=== PATIENT | male | born 1995 | race Caucasian/White ===

== ENCOUNTER 2021-11-03 22:06 | Emergency (ER) | payer OTHER ==
--- NOTE | 2021-11-03 22:32 | ED Physician Documentation ---
History of Present Illness - Stated complaint Stated Complaint: VOM/FEVER/HEADACHE/DELUSIONS - Chief complaint Chief Complaint: Abd Pain - History obtained from History obtained from: Patient - History of Present Illness Timing: Prior to arrival (17:00) Pain level now: 1 Improved by: improved after vomiting Worsened by: no exacerbating factors - Additonal information Additional information: c/o sudden onset n/v 5 PM tonight. With one episode of emesis, noted little bit (per patient) of blood. Mild sore throat, Tmax 100.7. Denies abdominal pain, denies diarrhea. No sick household contacts. he is COVID vaccinated without booster Review of Systems Constitutional: reports: Fever Throat: reports: Sore throat Cardiac: reports: Reviewed and negative Respiratory: reports: Reviewed and negative GI: reports: Nausea, Vomiting. denies: Abdominal Pain, Abdominal Swelling, Constipation, Diarrhea : denies: Dysuria, Frequency PD PAST MEDICAL HISTORY - Past Medical History Past Medical History: No - Past Surgical History Past Surgical History: Yes General: Appendectomy - Present Medications Home Medications: Ambulatory Orders Medication Instructions Recorded Confirmed Ondansetron Odt [Zofran] 4 mg TL Q6H PRN #14 tablet 11/04/21 11/04/21 - Allergies Allergies/Adverse Reactions: Allergies Allergy/AdvReac Type Severity Reaction Status Date / Time No Known Drug Allergies Allergy Verified 11/04/21 12:20 - Social History Does the pt smoke?: Yes Smoking Status: Current every day smoker Does the pt drink ETOH?: Yes ETOH Use: Beer Does the pt have substance abuse?: No - Immunizations Immunizations are current?: Yes - POLST Patient has POLST: No PD ED PE NORMAL - Vitals Vital signs reviewed: Yes - General General: Alert and oriented X 3, No acute distress, Well developed/nourished - HEENT HEENT: Other (pasty/tacky mucous membranes) - Neck Neck: Supple, no meningeal sign - Cardiac Cardiac: RRR, No murmur - Respiratory Respiratory: No respiratory distress, Clear bilaterally - Abdomen Abdomen: Normal bowel sounds, Soft, Non tender, Non distended PD ED PE EXPANDED - HEENT HEENT: Pharyngeal erythema (mild posterior o/p erythema). No: Tonsillar exudate Results - Vitals Vitals: Oxygen O2 Source Room air - Labs Labs: Microbiology 11/03/21 23:10 Group A Strep Throat Culture - Final Throat Beta Hemolytic Strep Group F Laboratory Tests 11/03/21 11/03/21 11/03/21 22:35 22:35 22:35 WBC 19.3 H RBC 4.55 L Hgb 14.9 Hct 41.2 L MCV 90.5 MCH 32.7 H MCHC 36.2 H RDW 11.9 L Plt Count 236 MPV 10.7 Neut # (Auto) 17.0 H Lymph # (Auto) 0.7 L [place] # (Auto) 1.2 H Eos # (Auto) 0.2 Baso # (Auto) 0.1 Absolute Nucleated RBC 0.00 Nucleated RBC % 0.0 Sodium 135 Potassium 3.1 L Chloride 99 L Carbon Dioxide 21 Anion Gap 15.0 H BUN 15 Creatinine 0.9 Estimated GFR (MDRD) 101 Glucose 125 H Calcium 9.7 Total Bilirubin 1.2 H AST 20 ALT 19 Alkaline Phosphatase 74 Total Protein 8.4 H Albumin 5.0 Globulin 3.4 Albumin/Globulin Ratio 1.5 Lipase 29 Urine Color YELLOW Urine Clarity CLEAR Urine pH 8.5 H Ur Specific [place] 1.015 Urine Protein NEGATIVE Urine Glucose (UA) NEGATIVE Urine Ketones 40 H Urine Occult Blood NEGATIVE Urine Nitrite NEGATIVE Urine Bilirubin NEGATIVE Urine Urobilinogen 0.2 (NORMAL) Ur Leukocyte Esterase NEGATIVE Ur Microscopic Review NOT INDICATED Urine Culture Comments NOT INDICATED Nasal Adenovirus (PCR) Nasal B. parapertussis DNA (PCR) Nasal Coronavir 229E PCR Nasal Coronavir HKU1 PCR Nasal Coronavir NL63 PCR Nasal Coronavir OC43 PCR Nasal Enterovir/Rhinovir PCR Nasal Influenza B PCR Nasal Influenza A PCR Nasal Parainfluen 1 PCR Nasal Parainfluen 2 PCR Nasal Parainfluen 3 PCR Nasal Parainfluen 4 PCR Nasal RSV (PCR) Nasal B.pertussis DNA PCR Nasal C.pneumoniae (PCR) [place] Human Metapneumo PCR Nasal M.pneumoniae (PCR) Nasal SARS-CoV-2 (PCR) Group A Strep Rapid 11/03/21 11/03/21 23:05 23:10 WBC RBC Hgb Hct MCV MCH MCHC RDW Plt Count MPV Neut # (Auto) Lymph # (Auto) [place] # (Auto) Eos # (Auto) Baso # (Auto) Absolute Nucleated RBC Nucleated RBC % Sodium Potassium Chloride Carbon Dioxide Anion Gap BUN Creatinine Estimated GFR (MDRD) Glucose Calcium Total Bilirubin AST ALT Alkaline Phosphatase Total Protein Albumin Globulin Albumin/Globulin Ratio Lipase Urine Color Urine Clarity Urine pH Ur Specific [place] Urine Protein Urine Glucose (UA) Urine Ketones Urine Occult Blood Urine Nitrite Urine Bilirubin Urine Urobilinogen Ur Leukocyte Esterase Ur Microscopic Review Urine Culture Comments Nasal Adenovirus (PCR) NOT DETECTED Nasal B. parapertussis DNA (PCR) NOT DETECTED Nasal Coronavir 229E PCR NOT DETECTED Nasal Coronavir HKU1 PCR NOT DETECTED Nasal Coronavir NL63 PCR NOT DETECTED Nasal Coronavir OC43 PCR NOT DETECTED Nasal Enterovir/Rhinovir PCR NOT DETECTED Nasal Influenza B PCR NOT DETECTED Nasal Influenza A PCR NOT DETECTED Nasal Parainfluen 1 PCR NOT DETECTED Nasal Parainfluen 2 PCR NOT DETECTED Nasal Parainfluen 3 PCR NOT DETECTED Nasal Parainfluen 4 PCR NOT DETECTED Nasal RSV (PCR) NOT DETECTED Nasal B.pertussis DNA PCR NOT DETECTED Nasal C.pneumoniae (PCR) NOT DETECTED [place] Human Metapneumo PCR NOT DETECTED Nasal M.pneumoniae (PCR) NOT DETECTED Nasal SARS-CoV-2 (PCR) NOT DETECTED Group A Strep Rapid Negative PD MEDICAL DECISION MAKING - ED course Complexity details: reviewed results, re-evaluated patient, considered differential, d/w patient ED course: given 1 liters NS and, prior to d/c, 20meq KCL PO due to k of 3.1 Also given zofran 4mg TL. besides hypokalemia, blood tests also notable for leukocytosis WBC 19.3. He is not ill-appearing, and reports feeling better with the 1 liter NS and 4mg zofran. He says he feels comfortable going home. PCR respiratory panel is negative. Suspect viral gastritis vs PUD. Recommend f/u with PMD, return precautions discussed Departure - Departure Disposition: 01 Home, Self Care Clinical Impression: Hypokalemia Vomiting Qualifiers: Vomiting type: unspecified Nausea presence: with nausea Qualified Code(s): R11.2 - Nausea with vomiting, unspecified Condition: Good Instructions: ED Potassium Deficiency, ED Nausea Vomiting Follow-Up: JUAN JOSE Mohan [Provider Group] Prescriptions: Ondansetron Odt [Zofran] 4 mg TL Q6H PRN #14 tablet PRN Reason: Nausea / Vomiting Comments: Follow up with your primary care provider in 3-5 days. Your potassium was a little low tonight (3.1) for which you were given a dose of potassium in the emergency department. You do not need more prescribed potassium but your primary care provider might recheck the potassium level to see that it has normalized. Discharge Date/Time: 11/04/21 01:24
[2021-11-03] MEDS ORDERED: SODIUM CHLORIDE 0.9% 1,000 ML IV STA (22:39)
[2021-11-03 22:44] LABS: BASOPHILS # (AUTO) 0.1 10^3/uL (0.0-0.1); BASOPHILS % (AUTO) 0.4 %; EOSINOPHILS # (AUTO) 0.2 10^3/uL (0.0-0.7); EOSINOPHILS % (AUTO) 0.8 %; HCT - HEMATOCRIT 41.2 % (42.0-52.0); HGB - HEMOGLOBIN 14.9 g/dL (14.0-18.0); LYMPHOCYTES # (AUTO) 0.7 10^3/uL (1.5-3.5); LYMPHOCYTES % (AUTO) 3.8 %; MEAN CORPUSCULAR HEMOGLOBIN 32.7 pg (27.0-31.0); MEAN CORPUSCULAR HGB CONC 36.2 g/dL (32.0-36.0); MEAN CORPUSCULAR VOLUME 90.5 fL (80.0-94.0); MEAN PLATELET VOLUME 10.7 fL (7.4-11.4); MONOCYTES # (AUTO) 1.2 10^3/uL (0.0-1.0); MONOCYTES % (AUTO) 6.4 %; NEUTROPHILS % (AUTO) 88.1 %; PLT - PLATELET COUNT 236 10^3/uL (130-450); RED BLOOD COUNT 4.55 10^6/uL (4.70-6.10); RED CELL DISTRIBUTION WIDTH 11.9 % (12.0-15.0); WHITE BLOOD COUNT 19.3 x10^3/uL (4.8-10.8)
[2021-11-03 22:45] LABS: BILIRUBIN,URINE NEGATIVE (NEGATIVE); GLUCOSE, URINE (UA) NEGATIVE (NEGATIVE); KETONES,URINE (UA) 40 mg/dL (NEGATIVE); LEUKOCYTE ESTERASE, URINE NEGATIVE (NEGATIVE); NITRITE,URINE NEGATIVE (NEGATIVE); OCCULT BLOOD,URINE NEGATIVE (NEGATIVE); PH,URINE 8.5 PH (5.0-7.5); PROTEIN,URINE NEGATIVE (NEGATIVE); UROBILINOGEN,URINE 0.2 (NORMAL) E.U./dL (NORMAL)
[2021-11-03 22:46] LABS: CLARITY,URINE CLEAR (CLEAR)
[2021-11-03 22:56] LABS: ALBUMIN/GLOBULIN RATIO 1.5 (1.0-2.2); BILIRUBIN,TOTAL 1.2 mg/dL (0.2-1.0); CALCIUM 9.7 mg/dL (8.5-10.3); CREATININE 0.9 mg/dL (0.6-1.2); POTASSIUM 3.1 mmol/L (3.5-5.0); TOTAL PROTEIN 8.4 g/dL (6.7-8.2)
[2021-11-03 23:19] LABS: RAPID STREP SCREEN Negative (Negative)
[2021-11-04 00:06] LABS: B. PARAPERTUSSIS- RESP PCR PAN NOT DETECTED; B. PERTUSSIS- RESP PCR PANEL NOT DETECTED; C. PNEUMONIAE- RESP PCR PANEL NOT DETECTED; CORONAVIRUS 229E-RESP PCR NOT DETECTED; CORONAVIRUS HKU1-RESP PCR NOT DETECTED; CORONAVIRUS NL63-RESP PCR NOT DETECTED; CORONAVIRUS OC43-RESP PCR NOT DETECTED; HUMAN METAPNEUMOVIRUS NOT DETECTED; INFLUENZA A- RESP PCR PANEL NOT DETECTED; INFLUENZA B - RESP PCR PANEL NOT DETECTED; M. PNEUMONIAE- RESP PCR PANEL NOT DETECTED; PARAINFLUENZA VIRUS 1 NOT DETECTED; PARAINFLUENZA VIRUS 2 NOT DETECTED; PARAINFLUENZA VIRUS 3 NOT DETECTED; PARAINFLUENZA VIRUS 4 NOT DETECTED; RHINOVIRUS/ENTEROVIRUS NOT DETECTED; RSV- RESP PCR PANEL NOT DETECTED; SARS-CoV-2 -RESP PCR PANEL NOT DETECTED
[2021-11-04] MEDS ORDERED: POTASSIUM CHLORIDE 20 MEQ TABLET PO STA (00:54)
[2021-11-04] MEDS ORDERED: ONDANSETRON ODT 4 MG TABLET TL STA (00:54)
[2021-11-04 01:21] VITALS: BP 122/75
--- NOTE | 2021-11-04 11:20 | ED Physician Documentation ---
ED Addendum - Addendum Addendum: 11/04/21 11:20 Culture review: Positive for group F strep. Asked RN to call patient and he can either be called in penicillin VK 500 mg p.o. 4 times daily for 10 days or return to the emergency department for long-acting Bicillin IM
== END 2021-11-04 01:24 | disposition home or self-care (01) ==
LOC: ED 22:06
DX: E87.6 Hypokalemia (principal); J02.0 Streptococcal pharyngitis; R11.2 Nausea with vomiting, unspecified; F17.200 Nicotine dependence, unspecified, uncomplicated
CPT/HCPCS: 36415; 80053; 81001; 81003; 83690; 85025; 87070; 87086; 87430; 87633

== ENCOUNTER 2021-11-04 12:15 | Emergency (ER) | payer OTHER ==
[2021-11-04 12:23] VITALS: BP 112/74
[2021-11-04] MEDS ORDERED: PENICILLIN G BENZATHINE 600,000 UNIT/ML SYRINGE IM STA (12:39)
--- NOTE | 2021-11-04 12:41 | ED Physician Documentation ---
PD HPI HEENT - Stated complaint Stated Complaint: FOLLOW UP - Chief complaint Chief Complaint: Heent - History obtained from History obtained from: Patient - Additional information Additional information: Seen here yesterday for sore throat, rapid strep negative but subsequently culture grew group F strep and was called back to the emergency department for treatment. He was offered outpatient treatment with penicillin but prefers Bicillin. Still has a moderate sore throat. No fevers. Review of Systems Constitutional: denies: Fever, Chills Nose: reports: Reviewed and negative Throat: reports: Reviewed and negative PD PAST MEDICAL HISTORY - Past Medical History Past Medical History: No Cardiovascular: None Respiratory: None Neuro: None Endocrine/Autoimmune: None GI: None : None HEENT: None Psych: None Musculoskeletal: None Derm: None - Past Surgical History Past Surgical History: No General: Appendectomy - Present Medications Home Medications: Ambulatory Orders Medication Instructions Recorded Confirmed Ondansetron Odt [Zofran] 4 mg TL Q6H PRN #14 tablet 11/04/21 11/04/21 - Allergies Allergies/Adverse Reactions: Allergies Allergy/AdvReac Type Severity Reaction Status Date / Time No Known Drug Allergies Allergy Verified 11/04/21 12:20 - Social History Does the pt smoke?: Yes Smoking Status: Current every day smoker Does the pt drink ETOH?: Yes ETOH Use: Beer, Liquor Does the pt have substance abuse?: No - Immunizations Immunizations are current?: Yes - POLST Patient has POLST: No PD ED PE NORMAL - Vitals Vital signs reviewed: Yes - General General: Alert and oriented X 3, No acute distress - HEENT HEENT: Other (Mild tonsillar swelling with small exudates, no anterior cervical adenopathy) - Neck Neck: Supple, no meningeal sign - Psych Psych: Normal mood, Normal affect Results - Vitals Vitals: Vital Signs - 24 hr 11/04/21 12:21 Temperature 36.4 C L Heart Rate 79 Respiratory 16 Rate Blood Pressure 112/74 O2 Saturation 98 Oxygen O2 Source Room air PD MEDICAL DECISION MAKING - ED course ED course: 26-year-old gentleman returns for treatment for positive strep culture and is administered 1,200,000 units of Bicillin LA. Departure - Departure Disposition: 01 Home, Self Care Clinical Impression: Strep pharyngitis Condition: Good Record reviewed to determine appropriate education?: Yes Instructions: ED Strep Pharyngitis Conf Comments: Your culture grew Group F strep, for that you received 1.2 million units of long acting penicillin. You should not require any other treatment. Return if worse. Forms: Activity restrictions Discharge Date/Time: 11/04/21 12:52
== END 2021-11-04 12:52 | disposition home or self-care (01) ==
LOC: ED 12:15
DX: J02.0 Streptococcal pharyngitis (principal); E87.6 Hypokalemia; F17.200 Nicotine dependence, unspecified, uncomplicated; R11.2 Nausea with vomiting, unspecified
CPT/HCPCS: 36415; 80053; 81003; 83690; 85025; 87070; 87430; 87633; 96360; 96372; 99282; 99283; A9270; Q0162; 81001; 87086

== ENCOUNTER 2023-12-06 21:43 | Outpatient (CLI) | payer OTHER | END 2023-12-06 23:59 | disposition critical access hospital (66) | LOC: EMS 21:43 | DX: R11.2 Nausea with vomiting, unspecified (principal); R19.7 Diarrhea, unspecified; R00.0 Tachycardia, unspecified | CPT/HCPCS: A0425; A0427 ==

== ENCOUNTER 2023-12-06 22:00 | Emergency (ER) | payer OTHER ==
[2023-12-06 22:12] LABS: BASOPHILS % (AUTO) 0.3 %; EOSINOPHILS # (AUTO) 0.2 10^3/uL (0.0-0.7); EOSINOPHILS % (AUTO) 1.5 %; HCT - HEMATOCRIT 42.7 % (42.0-52.0); HGB - HEMOGLOBIN 15.1 g/dL (14.0-18.0); LYMPHOCYTES # (AUTO) 0.8 10^3/uL (1.5-3.5); LYMPHOCYTES % (AUTO) 5.1 %; MEAN CORPUSCULAR HEMOGLOBIN 31.6 pg (27.0-31.0); MEAN CORPUSCULAR HGB CONC 35.4 g/dL (32.0-36.0); MEAN CORPUSCULAR VOLUME 89.3 fL (80.0-94.0); MEAN PLATELET VOLUME 10.5 fL (7.4-11.4); MONOCYTES # (AUTO) 0.9 10^3/uL (0.0-1.0); MONOCYTES % (AUTO) 5.7 %; NEUTROPHILS # (AUTO) 13.4 10^3/uL (1.5-6.6); PLT - PLATELET COUNT 249 10^3/uL (130-450); RED BLOOD COUNT 4.78 10^6/uL (4.70-6.10); RED CELL DISTRIBUTION WIDTH 11.9 % (12.0-15.0); WHITE BLOOD COUNT 15.3 x10^3/uL (4.8-10.8)
[2023-12-06] MEDS: DROPERIDOL 5 MG/2 ML VIAL IVP STA (22:13)
[2023-12-06] MEDS: SODIUM CHLORIDE 0.9% 1,000 ML IV STA (22:13)
[2023-12-06] MEDS: KETOROLAC 15 MG/ML VIAL IVP STA (22:13)
--- NOTE | 2023-12-06 22:23 | ED Physician Documentation ---
PD HPI NVD - Stated complaint Stated Complaint: N/V, BACK PAIN - Chief complaint Chief Complaint: Abd Pain - History obtained from History obtained from: Patient, EMS - Additonal information Additional information: 28-year-old male with no reported past medical history presents by EMS from home for nausea, vomiting, diarrhea, upper back pain that began approximately 6 PM. Patient initially had diarrhea followed by several episodes of emesis prior to onset of back pain. EMS administered 8 mg of Zofran and route, however patient had persistent nausea. On arrival patient is tremulous, clenching his teeth and hyperventilating. Review of Systems Constitutional: denies: Fever, Chills Cardiac: denies: Chest pain / pressure, Palpitations, Calf pain Respiratory: denies: Dyspnea, Cough, Wheezing GI: reports: Abdominal Pain, Nausea, Vomiting, Diarrhea. denies: Constipation : denies: Dysuria, Frequency, Hesitancy PD PAST MEDICAL HISTORY - Past Medical History Past Medical History: No Cardiovascular: None Respiratory: None Neuro: None Endocrine/Autoimmune: None GI: None : None HEENT: None Psych: None Musculoskeletal: None Derm: None - Past Surgical History Past Surgical History: Yes General: Appendectomy - Present Medications Home Medications: Ambulatory Orders Medication Instructions Recorded Confirmed Ondansetron Odt [Zofran] 4 mg TL Q6H PRN #30 tablet 12/06/23 - Allergies Allergies/Adverse Reactions: Allergies Allergy/AdvReac Type Severity Reaction Status Date / Time No Known Drug Allergies Allergy Verified 12/06/23 22:10 - Social History Does the pt smoke?: Yes Smoking Status: Current every day smoker Does the pt drink ETOH?: Yes Does the pt have substance abuse?: No - Immunizations Immunizations are current?: Yes - POLST Patient has POLST: No PD ED PE NORMAL - Vitals Vital signs reviewed: Yes - General General: Alert and oriented X 3, Well developed/nourished - Cardiac Cardiac: Strong equal pulses, Other (Tachycardia) - Respiratory Respiratory: No respiratory distress, Clear bilaterally - Abdomen Abdomen: Soft, Non tender, Non distended - Derm Derm: Normal color, Warm and dry, No rash - Neuro Neuro: Alert and oriented X 3, field evidence technician 2-12 intact, No motor deficit, Normal speech Results - Vitals Vitals: Vital Signs - 24 hr 12/06/23 12/06/23 12/06/23 22:08 22:11 23:57 Temperature 37.2 C Heart Rate 118 H 117 H 105 H Respiratory 18 16 Rate Blood Pressure 112/71 113/72 O2 Saturation 100 97 Oxygen O2 Source Room air - Labs Labs: Laboratory Tests 12/06/23 12/06/23 22:08 22:08 WBC 15.3 H RBC 4.78 Hgb 15.1 Hct 42.7 MCV 89.3 MCH 31.6 H MCHC 35.4 RDW 11.9 L Plt Count 249 MPV 10.5 Neut # (Auto) 13.4 H Lymph # (Auto) 0.8 L [place] # (Auto) 0.9 Eos # (Auto) 0.2 Baso # (Auto) 0.0 Absolute Nucleated RBC 0.00 Nucleated RBC % 0.0 Sodium 139 Potassium 3.6 Chloride 105 Carbon Dioxide 16 L Anion Gap 18.0 H BUN 20 Creatinine 0.8 Estimated GFR (MDRD) 114 Glucose 92 Calcium 9.6 Total Bilirubin 0.8 AST 16 ALT 22 Alkaline Phosphatase 63 Total Protein 7.3 Albumin 4.8 Globulin 2.5 Albumin/Globulin Ratio 1.9 Lipase 13 PD Medical Decision Making - ED course Complexity details: reviewed results, re-evaluated patient, considered differential, d/w patient ED course: Nontoxic patient with several hours of symptoms. Abdomen soft and nontender. Patient slightly tachycardic on arrival, however he is clenching his jaw, hyperventilating, locking his muscles. Will order labs and IV fluids as well as antiemetics. Laboratory work is reviewed, unremarkable. Mild leukocytosis, expected in acute vomiting. Patient has slight decrease in CO2, which would be expected as he arrived hyperventilating, however after administration of fluids and anti- emetics hyperventilation ceased. Patient's symptoms resolved with droperidol and he is able to tolerate p.o. without difficulty. Antiemetics sent to pharmacy of choice. Patient counseled on the importance of fluid hydration and recommended a brat diet for the next several days. Departure - Departure Disposition: 01 Home, Self Care Clinical Impression: Vomiting Qualifiers: Vomiting type: unspecified Nausea presence: with nausea Qualified Code(s): R11.2 - Nausea with vomiting, unspecified Condition: Stable Instructions: ED Vomiting Diarrhea Nonspecific Ad Prescriptions: Ondansetron Odt [Zofran] 4 mg TL Q6H PRN #30 tablet PRN Reason: Nausea / Vomiting Comments: Make sure to drink plenty of fluids and stay hydrated. Follow a light diet for the neck several days to avoid upsetting your stomach. Forms: PCP List Discharge Date/Time: 12/07/23 00:01
[2023-12-06 22:52] LABS: ALBUMIN 4.8 g/dL (3.2-5.5); ALBUMIN/GLOBULIN RATIO 1.9 (1.0-2.2); BILIRUBIN,TOTAL 0.8 mg/dL (0.2-1.0); CALCIUM 9.6 mg/dL (8.5-10.3); CREATININE 0.8 mg/dL (0.6-1.3); POTASSIUM 3.6 mmol/L (3.5-4.5); TOTAL PROTEIN 7.3 g/dL (6.4-8.9)
[2023-12-07 00:03] VITALS: BP 113/72; O2SAT 97
== END 2023-12-07 00:01 | disposition home or self-care (01) ==
LOC: EDBD → EDUNIT# → ED 22:00
DX: R11.0 Nausea (principal); R06.4 Hyperventilation; F17.200 Nicotine dependence, unspecified, uncomplicated
CPT/HCPCS: 36415; 80053; 83690; 85025; 96361; 96374; 99283